=== PATIENT | female | born 1960 | race Caucasian/White ===

== ENCOUNTER 2022-05-11 19:50 | Observation (INO) | payer OTHER ==
[~2022-05-11] VITALS: Ht 149.9 cm; Wt 38.6 kg
[2022-05-11 19:57] VITALS: BP_SYST 165
--- NOTE | 2022-05-11 20:09 | NUR ---
PT HERE C/O SOB X2 DAYS, ALONG WITH RICHARD SHOULDER D/T EXERTION MARIAM WITH ACTIVITY. PT DENIES CP, DENIES FEVER, SHE STATED THAT SHE IS SMOKER UP TO THIS TIME. +SMOKER COUGH AND CONGESTION. PER PT SHE WAS RECENTLY DX WITH UTI AND TAKING ABX PRESCRIPTION. HX:COPD PT AAOX4, MILD TRIPODING NOTED, +SOB ON EXERTION, PLACED ON GOWNED AND TO CARDIAC MONITORS.
--- NOTE | 2022-05-11 20:15 | NUR ---
Placed in room 2 . Placed on enterprise application analyst, blood pressure machine and pulse oximeter. To gown for exam. Side rails up. Report given to Jo-Ann GAONA(reg).
--- NOTE | 2022-05-11 20:23 | NUR ---
# 20 gauge angiocath placed to L AC. Use of asceptic technique. Opsite placed over site. Blood return noted. Flushed with 10 cc of normal saline. No evidence of infiltration noted. Patient tolerated well.
--- NOTE | 2022-05-11 20:40 | NUR ---
Pt states she started experiencing SOB yesterday and worsened this afternoon. Pt has hx of COPD. Pt speaking in full sentences and states she "feels better than earlier" on 2L NC sating at 95%.
[2022-05-11 20:43] LABS: BASOPHILS # (AUTO) 0.1 K/uL (0.0-0.2); BASOPHILS % (AUTO) 1.2 % (0.0-2.0); EOSINOPHILS # (AUTO) 0.2 K/uL (0.0-0.4); HEMATOCRIT 40.7 % (36-48); LYMPHOCYTES # (AUTO) 1.4 K/uL (1.0-5.5); LYMPHOCYTES % (AUTO) 21.7 % (20.5-51.5); MEAN CORPUSCULAR VOLUME 89 fL (79.0-98.0); MONOCYTES # (AUTO) 0.6 K/uL (0.0-1.0); MONOCYTES % (AUTO) 9.8 % (1.7-9.3); NEUTROPHILS # (AUTO) 4.1 K/uL (1.8-7.7); NEUTROPHILS % (AUTO) 64.3 % (40.0-70.0); PLATELET COUNT (AUTO) 242 K/uL (130-430); RED BLOOD CELL COUNT(AUTO) 4.57 MIL/uL (4.2-6.2); RED CELL DISTRIBUTION WIDTH 14.6 % (9.0-15.0); WHITE BLOOD COUNT (AUTO) 6.4 K/uL (4.8-10.8)
[2022-05-11 20:56] LABS: CALCIUM 9.2 mg/dL (8.4-11.0); CREATININE 1.02 mg/dL (0.55-1.30); POTASSIUM 3.7 mmol/L (3.5-5.1)
[2022-05-11] MEDS ORDERED: IPRATROPIUM/ALBUTEROL SULFATE 3 ML AMPUL.NEB (DUONEB) INH ONE ×2 (21:00→22:15)
[2022-05-11] MEDS ORDERED: NACL 0.9% 1,000 ML IV ONE (21:00)
[2022-05-11] MEDS ORDERED: cefTRIAXone 1 GM IVPB PREMIX 50 ML IV ONE (21:00)
[2022-05-11] MEDS ORDERED: methylPREDNISolone SOD SUCC/PF 62.5 MG/ML VIAL IVP ONE (21:00)
[2022-05-11 21:13] LABS: ALBUMIN 3.6 g/dL (3.4-4.8); TOTAL BILIRUBIN 0.4 mg/dL (0.0-1.0)
--- NOTE | 2022-05-11 21:41 | NUR ---
Rt at bedside for breathing tx.
--- NOTE | 2022-05-11 21:43 | NUR ---
COVID-19 ALICIA SWAB OBTAINED AND SENT TO THE LAB.
[2022-05-11] MEDS ORDERED: MAGNESIUM SULFATE 1 GM/2 ML VIAL IVP ONE (22:30)
--- NOTE | 2022-05-11 23:00 | NUR ---
Pt resting in bed. VSS, O2 sat at 94% on NC 3L. Safety precautions in place and connected to monitor.
[2022-05-11 23:05] LABS: BILIRUBIN,URINE NEGATIVE (NEGATIVE); BLOOD, URINE NEGATIVE (NEGATIVE); COLOR,URINE ORANGE (YELLOW); GLUCOSE,URINE TRACE (NEGATIVE); KETONES,URINE 1+ (NEGATIVE); LEUKOCYTE ESTERASE ,URINE TRACE (NEGATIVE); NITRITE, URINE POSITIVE (NEGATIVE); PROTEIN URINE 1+ (NEGATIVE)
[2022-05-11 23:07] LABS: CLARITY/URINE HAZY (CLEAR)
[2022-05-11 23:22] LABS: BACTERIA,URINE FEW /HPF (None Seen); RBC,URINE 0-3 /HPF (0-3)
[2022-05-11 23:23] LABS: MUCUS,URINE 1+ /LPF (None Seen)
[2022-05-12] MEDS ORDERED: MAGNESIUM SULFATE 50 ML IV ONE
--- NOTE | 2022-05-12 00:10 | NUR ---
Pt resting in bed and given a blanket. VSS O2 sat at 94% on NC 3L. Safety precautions in place and connected to monitor.
--- NOTE | 2022-05-12 02:50 | NUR ---
Patient will be admitted to care of Dr. Mcbride. Admitted to tele unit. Will go to room 111B. Belongings list completed. Complete and up to date summary report printed. SBAR report given to Ella GAONA at bedside with opportunity for questions.
[2022-05-12] MEDS ORDERED: IPRATROPIUM/ALBUTEROL SULFATE 3 ML AMPUL.NEB (DUONEB) INH PRN (03:00)
--- NOTE | 2022-05-12 03:40 | NUR ---
CONSULT: CONSULT CALLED FOR DR. 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
[2022-05-12 03:54] VITALS: BP_SYST 109
[2022-05-12 06:48] VITALS: BP_SYST 106
[2022-05-12 08:00] VITALS: BP_SYST 147
[2022-05-12] MEDS ORDERED: METHYLPREDNISOLONE SOD SUCC 40 MG/ML VIAL IVP SCH (09:00)
[2022-05-12 12:15] VITALS: BP_SYST 127
[2022-05-12] MEDS ORDERED: FLUT1DIS3 IH ×2 (12:49→14:52)
== END 2022-05-12 13:05 | disposition home or self-care (01) ==
LOC: SED 19:50 → STU 22:34
PROVIDERS: ADMIT Internal Medicine; ATTEND Internal Medicine
DX: J44.1 Chronic obstructive pulmonary disease with (acute) exacerbation (principal); Z20.822 Contact with and (suspected) exposure to COVID-19; J96.01 Acute respiratory failure with hypoxia; J20.9 Acute bronchitis, unspecified; J44.0 Chronic obstructive pulmonary disease with (acute) lower respiratory infection; Z79.899 Other long term (current) drug therapy
CPT/HCPCS: 96365; 96375; 80053; 81000; 83880; 85025; 87040; 87086; 84484; 36415; 93005; 71045; 94640; 99285; 83605; 87426; 96366; 96376; 96367; J0696; J3475; J2930; G0378 ×2; J1030